=== PATIENT | female | born 2000 ===

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

== ENCOUNTER 2021-09-14 08:05 | Inpatient (IN) ==
[2021-09-14] MEDS ORDERED: miSOPROStoL 200 MCG TABLET RECTAL PRN (08:12)
[2021-09-14] MEDS ORDERED: TRANEXAMIC ACID 1,000 MG in SODIUM CHLORIDE 0.9% 100 ML IV PRN (08:12)
[2021-09-14] MEDS ORDERED: CARBOPROST TROMETHAMINE 250 MCG/ML AMP IM PRN (08:12)
[2021-09-14] MEDS ORDERED: ONDANSETRON 4 MG/2 ML VIAL IV PRN ×2 (08:12→09:13)
[2021-09-14] MEDS ORDERED: MEPERIDINE 50 MG/1 ML VIAL IV PRN (08:12)
[2021-09-14] MEDS ORDERED: METHYLERGONOVINE 0.2 MG/1 ML AMP IM PRN (08:12)
[2021-09-14] MEDS ORDERED: OXYTOCIN/LR 20 UNIT/1,000 ML BAG IV SCH (08:30)
[2021-09-14] MEDS ORDERED: AMPICILLIN INJ 2,000 MG in SODIUM CHLORIDE 0.9% 100 ML IV ONE (08:30)
[2021-09-14] MEDS ORDERED: LIDOCAINE 1% 50 ML VIAL INFILTRAT ONE (08:30)
[2021-09-14] MEDS ORDERED: OXYTOCIN/LR 30 UNIT/1,000 ML BAG IV ONE (08:30)
[2021-09-14] MEDS ORDERED: LACTATED RINGERS 1,000 ML IV SCH (08:30)
[2021-09-14] MEDS ORDERED: OXYTOCIN/LR 20 UNIT/1,000 ML BAG IV ONE ×2 (08:30→09:30)
[2021-09-14 09:03] LABS: Cord Arterial Blood HCO3 18.1 MMOL/L
[2021-09-14 09:04] LABS: Basophils % 0.2 % (0.0-0.8); Eosinophils % 0.2 % (0.00-10.9); Hematocrit 36.1 VOL% (35.7-47.0); Hemoglobin 11.4 GM/DL (12.0-16.0); Immature Granulocytes % 0.5 %; Immature Granulocytes Absolute 0.07 #; Lymphocytes # 1.6 10*3/uL (1.4-4.0); Lymphocytes % 11.9 % (21.3-54.2); Mean Corpuscular HGB Conc 31.6 GM/DL (32-36); Mean Corpuscular Volume 89.1 FL (87-102); Mean Platelet Volume 12.4 FL (9.6-12.0); Monocytes # 0.5 10*3/uL (0.11-0.8); Monocytes % 3.6 % (1.7-12.7); Neutrophils % 83.6 % (38.7-73.9); Platelet Count 143 T/CUMM (130-400); Red Blood Count 4.05 MC/CUMM (3.8-5.5); Red Cell Distribution Width 12.7 % (9.3-17.3); White Blood Count 13.2 T/CUMM (4-12)
[2021-09-14 09:06] LABS: Cord Venous Blood HCO3 20.7 MMOL/L; Cord Venous Blood PCO2 49.3 MMHG; Cord Venous Blood PO2 30.3
[2021-09-14] MEDS ORDERED: HYDROCORTISONE 2.5% RECTAL CREAM 30 GM TUBE TOP PRN (09:13)
[2021-09-14] MEDS ORDERED: BISACODYL 10 MG SUPP RECTAL PRN (09:13)
[2021-09-14] MEDS ORDERED: ACETAMINOPHEN 325 MG TABLET PO PRN (09:13)
[2021-09-14] MEDS ORDERED: oxyCODONE/ACETAMINOPHEN 5-325 MG TABLET PO PRN ×2 (09:13)
[2021-09-14] MEDS ORDERED: BENZOCAINE 20%/MENTHOL 0.5% SPRAY 56 GM CAN TOP PRN (09:13)
[2021-09-14] MEDS ORDERED: LANOLIN 50% CREAM 0.3 OZ TUBE TOP PRN (09:13)
[2021-09-14] MEDS ORDERED: WITCH HAZEL PADS 100/JAR TOP PRN (09:13)
[2021-09-14 09:27] LABS: Albumin 2.4 G/DL (3.4-5.0); Bilirubin,Total 0.5 MG/DL (0.20-1.00); Calcium 8.8 MG/DL (8.5-10.1); Potassium 3.7 MMOL/L (3.5-5.1); Total Protein 6.9 G/DL (6.4-8.2)
[2021-09-14] MEDS ORDERED: MEASLES/MUMPS/RUBELLA VACCINE 0.5 ML VIAL SUBCUT ONE (09:30)
[2021-09-14] MEDS ORDERED: RHO(D) IMMUNE GLOBULIN 300 MCG SYRINGE IM ONE (09:30)
[2021-09-14] MEDS ORDERED: DIPH/TET/ACEL PERT BOOSTER VACCINE 0.5 ML VIAL IM ONE (09:30)
[2021-09-14 11:05] LABS: Hepatitis B Surface Ag Quant < 0.10 Index; Hepatitis B Surface Ag Result Non-Reactive (NonReactive); Rubella Antibody IgG Result Non-Reactive (NonReactive)
[2021-09-14] MEDS: IBUPROFEN 800 MG TABLET PO PRN (12:41)
[2021-09-14] MEDS: DOCUSATE SODIUM 100 MG CAPSULE PO SCH (21:14)
[2021-09-15 06:24] LABS: Basophils % 0.2 % (0.0-0.8); Eosinophils % 0.3 % (0.00-10.9); Hematocrit 30.1 VOL% (35.7-47.0); Hemoglobin 9.5 GM/DL (12.0-16.0); Immature Granulocytes % 0.6 %; Immature Granulocytes Absolute 0.07 #; Lymphocytes # 3.3 10*3/uL (1.4-4.0); Lymphocytes % 26.6 % (21.3-54.2); Mean Corpuscular HGB Conc 31.6 GM/DL (32-36); Mean Corpuscular Volume 88.8 FL (87-102); Mean Platelet Volume 12.3 FL (9.6-12.0); Monocytes # 0.7 10*3/uL (0.11-0.8); Monocytes % 5.7 % (1.7-12.7); Neutrophils % 66.6 % (38.7-73.9); Platelet Count 168 T/CUMM (130-400); Red Blood Count 3.39 MC/CUMM (3.8-5.5); Red Cell Distribution Width 12.9 % (9.3-17.3); White Blood Count 12.4 T/CUMM (4-12)
[2021-09-15] MEDS: DOCUSATE SODIUM 100 MG CAPSULE PO SCH ×2 (08:38→21:21)
[2021-09-15] MEDS: IBUPROFEN 800 MG TABLET PO PRN (11:49)
[2021-09-16 08:10] VITALS: BP 111/56
[2021-09-16] MEDS: DOCUSATE SODIUM 100 MG CAPSULE PO SCH (10:20)
== END 2021-09-16 12:00 | disposition home or self-care (01) | DRG 560 ==
LOC: N.LD 08:05 → N.OB 09-15 14:23
PROVIDERS: ADMIT Obstetrics & Gynecology; ATTEND Obstetrics & Gynecology